=== PATIENT | male | born 1970 | race Caucasian/White ===

== ENCOUNTER 2017-11-24 10:36 | Observation (INO) | payer OTHER ==
[2017-11-24] MEDS ORDERED: NA CHLORIDE 0.9% 1,000 ML ONE (11:05)
[2017-11-24 11:25] LABS: Absolute Monocytes 0.7 K/uL (0.1-1.3); Absolute Neutrophil 6.1 K/uL (1.8-8.0); Basophils % 0.8 % (0-1.3); Eosinophils % 0.5 % (0-4.4); Hematocrit 50.6 % (39.6-49.0); Lymphocytes % 22.4 % (15.3-44.8); MCH 30.8 pg (27.0-35.0); MCV 89.7 fL (80-100); MPV 8.3 fL (7.6-11.3); RBC Red Blood Cell Count 5.63 M/uL (4.33-5.43)
[2017-11-24 11:37] LABS: Potassium 4.3 mEq/L (3.6-5.0)
[2017-11-24 11:43] LABS: Albumin 4.7 g/dL (3.2-5.5); Bilirubin Direct 0.2 mg/dL (0-0.2); Bilirubin Total 1.1 mg/dL (0.3-1.2); Magnesium 2.3 mg/dL (1.8-2.5); Protein, Total 7.9 g/dL (6.0-8.3)
[2017-11-24 11:45] LABS: CKMB Creatine Kinase MB 1.6 ng/ml (0.3-4.0)
--- NOTE | 2017-11-24 12:07 | RAD REPORT ---
EXAM DESCRIPTION: CT - Head Brain Wo Cont - 11/24/2017 11:51 am CLINICAL HISTORY: Hypertension, headache. COMPARISON: None. TECHNIQUE: All CT scans are performed using dose optimization technique as appropriate and may inclu de automated exposure control or mA/KV adjustment according to patient size. FINDINGS: No intracranial hemorrhage, hydrocephalus or extra-axial fluid collection.No areas of brai n edema or evidence of midline shift. The paranasal sinuses and mastoids are clear. The calvarium is intact. IMPRESSION: No acute intracranial abnormality.
--- NOTE | 2017-11-24 12:17 | EKG ---
Test Date: 2017-11-24 Test Time: 10:52:55 Light Rail Signal Technician: CHAUNCEY MEASUREMENT RESULTS: Intervals: Rate: 101 DE: 138 QRSD: 82 QT: 320 QTc: 414 [place]: P: 24 DE: 138 QRS: 6 T: 24 INTERPRETIVE STATEMENTS: Sinus tachycardia Otherwise normal ECG Compared to ECG 10/13/2013 10:15:19 Sinus rhythm no longer present Electronically Signed On 11-24-17 12:15:48 CDT by Reg Landers
--- NOTE | 2017-11-24 12:18 | RAD REPORT ---
EXAM DESCRIPTION: RAD - Chest Single View - 11/24/2017 11:54 am CLINICAL HISTORY: Hypertension, chest pain COMPARISON: 11/26/2015 FINDINGS: Portable technique limits examination quality. The lungs are grossly clear. The heart is normal in size. No displaced fractures. IMPRESSION: No acute intrathoracic process suspected.
[2017-11-24] MEDS ORDERED: ASPIRIN EC 81 MG TAB PO ONE (12:27)
--- NOTE | 2017-11-24 12:40 | EDPHYS ---
Physician Documentation [facility] Name: Mahesh West Age: 47 yrs Sex: Male : 1970 Arrival Date: 11/24/2017 Time: 10:39 Bed 13 Private MD: ED Physician Ashkan Hoover HPI: 11/24 11:02 This 47 yrs old Male presents to ER via EMS with complaints of tingling L cp side of face, L arm. 11:02 The patient's problem is reported as paresthesias, in left upper extremity, in left cp side of face. 11:02 Onset: The symptoms/episode began/occurred this morning, at 09:45. Duration: The cp episode is continuous, still ongoing. Context: symptoms became apparent at work. Associated signs and symptoms: Pertinent negatives: abdominal pain, blurred vision, chest pain, diaphoresis, dizziness, headache, palpitations, weakness. Severity of symptoms: in the emergency department the symptoms are unchanged. Patient's baseline: Neuro: alert and fully oriented, Motor: no deficits, Ambulation: walks without assistance, Speech: normal. The patient has not experienced similar symptoms in the past. Historical: - Allergies: 10:46 No Known Allergies; hj - Home Meds: 10:46 losartan 25 mg oral tab 1 tab once daily [Active]; hj - PMHx: 10:46 Hyperlipidemia; Hypertension; hj - PSHx: 10:46 None; hj - Immunization history:: Adult Immunizations up to date. - Social history:: Smoking status: Patient/guardian denies using tobacco, Patient/guardian denies using alcohol. ROS: 11:00 Constitutional: Negative for body aches, chills, fever, poor PO intake. cp 11:00 Eyes: Negative for injury, pain, redness, and discharge. cp 11:00 ENT: Negative for drainage from ear(s), ear pain, sore throat, difficulty swallowing, difficulty handling secretions. 11:00 Neck: Negative for pain with movement, pain at rest, stiffness. 11:00 Cardiovascular: Negative for chest pain, edema, palpitations. 11:00 Respiratory: Negative for cough, shortness of breath, wheezing. 11:00 Abdomen/GI: Negative for abdominal pain, nausea, vomiting, and diarrhea, black/tarry stool, rectal bleeding. 11:00 Back: Negative for pain at rest, pain with movement, radiated pain. 11:00 : Negative for urinary symptoms. 11:00 Skin: Negative for cellulitis, rash. 11:00 Neuro: Positive for tingling, of the left side of face and left forearm, Negative for altered mental status, dizziness, headache, speech changes, weakness. 11:00 All other systems are negative. Exam: 11:03 ECG was reviewed by the Attending Physician. cp 11:05 Constitutional: The patient appears in no acute distress, alert, awake, cp non-diaphoretic, non-toxic, well developed, well nourished. 11:05 Head/Face: Normocephalic, atraumatic. Eyes: Pupils equal round and reactive to light, cp extra-ocular motions intact. Lids and lashes normal. Conjunctiva and sclera are non-icteric and not injected. Cornea within normal limits. Periorbital areas with no swelling, redness, or edema. ENT: Nares patent. No nasal discharge, no septal abnormalities noted. Tympanic membranes are normal and external auditory canals are clear. Oropharynx with no redness, swelling, or masses, exudates, or evidence of obstruction, uvula midline. Mucous membranes moist. Neck: Trachea midline, no thyromegaly or masses palpated, and no cervical lymphadenopathy. Supple, full range of motion without nuchal rigidity, or vertebral point tenderness. No Meningismus. Chest/axilla: Normal chest wall appearance and motion. Nontender with no deformity. No lesions are appreciated. 11:05 Cardiovascular: Rate: tachycardic, Rhythm: regular, Pulses: Pulses are 2+ in right radial artery and left radial artery. Heart sounds: murmur, not appreciated, rub, not appreciated, gallop, not appreciated, Edema: is not appreciated, JVD: is not appreciated. 11:05 Respiratory: the patient does not display signs of respiratory distress, Respirations: normal, no use of accessory muscles, no retractions, no splinting, no tachypnea, labored breathing, is not present, Breath sounds: are clear throughout, no decreased breath sounds, no stridor, no wheezing. 11:05 Abdomen/GI: Inspection: abdomen appears normal, Bowel sounds: active, all quadrants, Palpation: abdomen is soft and non-tender, in all quadrants, rebound tenderness, is not appreciated, voluntary guarding, is not appreciated, involuntary guarding, is not appreciated. 11:05 Back: pain, is absent, ROM is normal. 11:05 Skin: cellulitis, is not appreciated, no rash present. 11:05 Neuro: Orientation: to person, place \T\ time. Mentation: is normal, Cranial nerves: CN II- XII are normal as tested, Cerebellar function: Romberg testing is negative, normal finger to nose testing, heel to jernigan testing is normal, Motor: moves all fours, strength is normal, Sensation: tingling, that is mild, of the left side of face and left forearm, Gait: is steady, at a normal pace, without difficulty. 12:25 Radiologist reports: no acute intracranial findings cp Vital Signs: 10:47 BP 136 / 96; Pulse 106; Resp 18; Temp 98.1(O); Pulse Ox 96% on R/A; Weight 99.79 kg; hj Height 5 ft. 7 in. (170.18 cm); Pain 0/10; 11:30 BP 135 / 89; Pulse 101; Resp 18; Pulse Ox 100% on R/A; hj 12:30 BP 139 / 96; Pulse 102; Resp 18; Pulse Ox 100% on R/A; hj 13:30 BP 130 / 78; Pulse 79; Resp 18; Pulse Ox 100% on R/A; hj 15:45 BP 117 / 78; Pulse 78; Resp 18; Pulse Ox 100% on R/A; hj 10:47 Body Mass Index 34.46 (99.79 kg, 170.18 cm) NIH Stroke Scale Scores: 11:00 NIHSS Score: 1 cp MDM: 11:03 Patient medically screened. 12:30 Data reviewed: vital signs, nurses notes, lab test result(s), EKG, radiologic studies, cp CT scan, plain films. 12:30 Test interpretation: by ED physician or midlevel provider: ECG, plain radiologic cp studies. Counseling: I had a detailed discussion with the patient and/or guardian regarding: the historical points, exam findings, and any diagnostic results supporting the discharge/admit diagnosis, lab results, radiology results, the need for further work-up and treatment in the hospital. Response to treatment: There is no appreciated change of the patient's symptoms at this time, no improvement or distribution change of tngling. 12:37 Physician consultation: was contacted at 12:38, regarding admission, to the telemetry cp unit. patient's condition, DR Melchor. 11/24 11:00 Order name: Basic Metabolic Panel; Complete Time: 11:51 11/24 11:52 Interpretation: Normal except: GFR 72. 11/24 11:00 Order name: BNP; Complete Time: 11:51 cp 11/24 11:00 Order name: CBC with Diff; Complete Time: 11:41 cp 11/24 11:41 Interpretation: Normal except: RBC 5.63; HCT 50.6. 11/24 11:00 Order name: Ckmb; Complete Time: 11:51 cp 11/24 11:00 Order name: CPK; Complete Time: 11:51 cp 11/24 11:00 Order name: LFT's; Complete Time: 11:51 11/24 11:00 Order name: Magnesium; Complete Time: 11:51 11/24 11:00 Order name: PT-INR; Complete Time: 11:51 11/24 11:00 Order name: Ptt, Activated; Complete Time: 11:51 11/24 11:00 Order name: Troponin (emerg Dept Use Only); Complete Time: 11:51 11/24 11:52 Interpretation: Reviewed. 11/24 11:00 Order name: XRAY Chest (1 view); Complete Time: 12:20 11/24 12:20 Interpretation: Report review. 11/24 14:43 Order name: Glucose, Ancillary Testing [facility] 11/24 15:04 Order name: Urine Dipstick--Ancillary (enter results) [facility] 11/24 15:19 Order name: Urine Dipstick-Ancillary [facility] 11/24 11:00 Order name: EKG; Complete Time: 11:01 11/24 11:00 Order name: Cardiac monitoring; Complete Time: 11:03 11/24 11:00 Order name: EKG - Nurse/Tech; Complete Time: 11:03 11/24 11:00 Order name: IV Saline Lock; Complete Time: 11: 11/24 11:00 Order name: Labs collected and sent; Complete Time: 11:40 11/24 11:00 Order name: O2 Per Protocol; Complete Time: 11: 11/24 11:00 Order name: O2 Sat Monitoring; Complete Time: 11:03 11/24 11:00 Order name: Urine Dipstick-Ancillary (obtain specimen); Complete Time: 15:00 11/24 11:00 Order name: CT Head Brain wo Cont; Complete Time: 12:20 11/24 12:20 Interpretation: Report reviewed. 11/24 11:56 Order name: MRI - Brain Wo Cont 11/24 13:10 Order name: CONS Physician Consult [facility] 11/24 13:54 Order name: MRI [facility] 11/24 14:04 Order name: Diet Heart Healthy; Complete Time: 14:05 EC:03 Rate is 101 beats/min. Rhythm is regular. UT interval is normal. QRS interval is cp normal. QT interval is normal. No ST changes noted. Interpreted by me. Reviewed by me. Administered Medications: 11:03 Drug: NS 0.9% 1000 ml Route: IV; Rate: 1 bolus; Site: right antecubital; 12:22 Drug: Aspirin 81 mg Route: PO; 12:29 Follow up: Response: No adverse reaction Disposition: 11/24/17 12:39 Hospitalization ordered by Javed Quispe for Observation. Preliminary diagnosis are Paresthesia of skin - Left side of face and left upper extremity, Hypertensive heart disease. - Bed requested for Telemetry/MedSurg (observation). - Status is Observation. - Condition is Stable. - Problem is new. - Symptoms are unchanged. UTI on Admission? No NIH Stroke Scale - NIH Stroke Score Date: 11/24/2017 Time: 11:00 Total Score = 1 1a. Level of Consciousness (LOC) - 0(Alert) 1b. Level of Consciousness (LOC) (Year \T\ Age) - 0(Both) 1c. LOC Commands (Open \T\ Closes Eyes/Rd Lab Technician) - 0(Both) 2. Best Gaze (Lateral Gaze Paresis) - 0(Normal) 3. Visual Field Loss - 0(No visual loss) 4. Facial Palsy - 0(Normal) 5a. Left Arm: Motor (10-second hold) - 0(No drift) 5b. Right Arm: Motor (10-second hold) - 0(No drift) 6a. Left Leg: Motor (5-second hold - always test supine) - 0(No drift) 6b. Right Leg: Motor (5-second hold - always test supine) - 0(No drift) 7. Limb Ataxia (finger/nose \T\ heel/jernigan - test with eyes open) - 0(Absent) 8. Sensory Loss (pinprick arms/legs/face) - 1(Mild to moderate loss) 9. Best Language: Aphasia (description/naming/reading) - 0(No aphasia) 10. Dysarthria (speech clarity - read or repeat words) - 0(Normal) 11. Extinction and Inattention (visual/tactile/auditory/spatial/personal) - 0(No abnormality) Initials: cp Addendum: 11/26/2017 06:35 Co-signature as Attending Physician, Ashkan Hoover MD I agree with the me assessment and plan of care. Signatures: Dispatcher [employer] Jayme Jackson RN RN hj Page, Corey, PA PA cp Appiah, William, MD MD me Star Swanson mw2 Corrections: (The following items were deleted from the chart) 11/24 15:36 12:39 Hospitalization Ordered by Javed Quispe DO for Observation. Preliminary mw2 diagnosis is Paresthesia of skin - Left side of face and left upper extremity; Hypertensive heart disease. Bed requested for Telemetry/MedSurg (observation). Status is Observation. Condition is Stable. Problem is new. Symptoms are unchanged. UTI on Admission? No. cp 17:01 15:36 11/24/2017 12:39 Hospitalization Ordered by Javed Quispe DO for hj Observation. Preliminary diagnosis is Paresthesia of skin - Left side of face and left upper extremity; Hypertensive heart disease. Bed requested for Telemetry/MedSurg (observation). Status is Observation. Condition is Stable. Problem is new. Symptoms are unchanged. UTI on Admission? No. mw2
--- NOTE | 2017-11-24 12:40 | ER ---
Nurse's Notes [facility] Name: Mahesh West Age: 47 yrs Sex: Male : 1970 Arrival Date: 11/24/2017 Time: 10:39 Bed 13 Private MD: Diagnosis: Paresthesia of skin-Left side of face and left upper extremity;Hypertensive heart disease Presentation: 11/24 10:41 Presenting complaint: EMS states: around 9:45am, went to [facility] from office, desk hj work, complaining of tingling on L side of face, L arm, denies chest pain, denies SOB; denies headache; states took HTN meds this AM;. Transition of care: patient was not received from another setting of care. Onset of symptoms was November 24, 2017. Initial Sepsis Screen: Does the patient meet any 2 criteria? No. Patient's initial sepsis screen is negative. Does the patient have a suspected source of infection? No. Patient's initial sepsis screen is negative. Care prior to arrival: None. 10:41 Method Of Arrival: EMS: [facility] 10:41 Acuity: HIEN 3 hj Triage Assessment: 10:47 General: Appears in no apparent distress. uncomfortable, Behavior is calm, cooperative, hj appropriate for age. Pain: Denies pain. Historical: - Allergies: 10:46 No Known Allergies; hj - Home Meds: 10:46 losartan 25 mg oral tab 1 tab once daily [Active]; hj - PMHx: 10:46 Hyperlipidemia; Hypertension; hj - PSHx: 10:46 None; hj - Immunization history:: Adult Immunizations up to date. - Social history:: Smoking status: Patient/guardian denies using tobacco, Patient/guardian denies using alcohol. Screenin:48 Abuse screen: Denies threats or abuse. Denies injuries from another. Nutritional hj screening: No deficits noted. Tuberculosis screening: No symptoms or risk factors identified. Fall Risk None identified. Assessment: 11:30 Reassessment: Patient and/or family updated on plan of care and expected duration. Pain hj level reassessed. Patient is alert, oriented x 3, equal unlabored respirations, skin warm/dry/pink. tingling is present still on L arm;. 12:30 Reassessment: Patient and/or family updated on plan of care and expected duration. Pain hj level reassessed. Patient is alert, oriented x 3, equal unlabored respirations, skin warm/dry/pink. awaiting results and POC;. 13:30 Reassessment: Patient and/or family updated on plan of care and expected duration. Pain hj level reassessed. Patient is alert, oriented x 3, equal unlabored respirations, skin warm/dry/pink. awaiting room;. 14:30 Reassessment: Patient and/or family updated on plan of care and expected duration. Pain hj level reassessed. Patient is alert, oriented x 3, equal unlabored respirations, skin warm/dry/pink. eating lunch;. 15:38 Reassessment: Patient and/or family updated on plan of care and expected duration. Pain hj level reassessed. Patient is alert, oriented x 3, equal unlabored respirations, skin warm/dry/pink. going to 431;. 15:49 Reassessment: RN was told that the same nurse is getting this pt for floor nurse 3rd hj admission; will wait for a return call;. Vital Signs: 10:47 BP 136 / 96; Pulse 106; Resp 18; Temp 98.1(O); Pulse Ox 96% on R/A; Weight 99.79 kg; hj Height 5 ft. 7 in. (170.18 cm); Pain 0/10; 11:30 BP 135 / 89; Pulse 101; Resp 18; Pulse Ox 100% on R/A; hj 12:30 BP 139 / 96; Pulse 102; Resp 18; Pulse Ox 100% on R/A; hj 13:30 BP 130 / 78; Pulse 79; Resp 18; Pulse Ox 100% on R/A; hj 15:45 BP 117 / 78; Pulse 78; Resp 18; Pulse Ox 100% on R/A; hj 10:47 Body Mass Index 34.46 (99.79 kg, 170.18 cm) hj NIH Stroke Scale Scores: 11:00 NIHSS Score: 1 cp ED Course: 10:39 Patient arrived in ED. hj 10:45 Triage completed. hj 10:49 Arm band placed on right wrist. hj 10:49 Patient has correct armband on for positive identification. Placed in gown. Bed in low hj position. Call light in reach. Side rails up X 1. Adult w/ patient. 10:53 Catracho Arias PA is PHCP. cp 10:53 Ashkan Hoover MD is Attending Physician. cp 10:59 EKG done, by ED staff, reviewed by Catracho SUMMERS. jb1 11:00 Maintain EMS IV. Dressing intact. Good blood return noted. Site clean \T\ dry. Gauge \T\ hj site: 20g R AC:. 11:02 Jayme Kendrick RN is Primary Nurse. hj 11:[address] via wheelchair. kw1 11:30 CT completed. Patient tolerated procedure well. kw1 11:52 CT Head Brain wo Cont In Process Unspecified. EDMS 11:54 XRAY Chest (1 view) In Process Unspecified. EDMS 12:38 Javed Quispe DO is Hospitalizing Provider. cp 13:10 Patient moved to MRI via wheelchair. Patient moved back from MRI. lc 13:30 Patient moved back from MRI. lc 17:01 No provider procedures requiring assistance completed. Patient admitted, IV remains in hj place. intact. Administered Medications: 11:03 Drug: NS 0.9% 1000 ml Route: IV; Rate: 1 bolus; Site: right antecubital; hj 12:22 Drug: Aspirin 81 mg Route: PO; hj 12:29 Follow up: Response: No adverse reaction Outcome: 12:39 Decision to Hospitalize by Provider. cp 17:01 Admitted to Tele accompanied by tech, family with patient, via wheelchair, room 431, with chart, Report called to NATHAN Martin 17:01 Condition: stable 17:01 Instructed on the need for admit, Demonstrated understanding of instructions. 17:01 Patient left the ED. NIH Stroke Scale - NIH Stroke Score Date: 11/24/2017 Time: 11:00 Total Score = 1 1a. Level of Consciousness (LOC) - 0(Alert) 1b. Level of Consciousness (LOC) (Year \T\ Age) - 0(Both) 1c. LOC Commands (Open \T\ Closes Eyes/Oral Hygienist) - 0(Both) 2. Best Gaze (Lateral Gaze Paresis) - 0(Normal) 3. Visual Field Loss - 0(No visual loss) 4. Facial Palsy - 0(Normal) 5a. Left Arm: Motor (10-second hold) - 0(No drift) 5b. Right Arm: Motor (10-second hold) - 0(No drift) 6a. Left Leg: Motor (5-second hold - always test supine) - 0(No drift) 6b. Right Leg: Motor (5-second hold - always test supine) - 0(No drift) 7. Limb Ataxia (finger/nose \T\ heel/jernigan - test with eyes open) - 0(Absent) 8. Sensory Loss (pinprick arms/legs/face) - 1(Mild to moderate loss) 9. Best Language: Aphasia (description/naming/reading) - 0(No aphasia) 10. Dysarthria (speech clarity - read or repeat words) - 0(Normal) 11. Extinction and Inattention (visual/tactile/auditory/spatial/personal) - 0(No abnormality) Initials: cp Signatures: Dispatcher [employer] EDBam Azar jb1 Ayse Freire Henry, RN RN Catracho Yeung PA PA cp Rand Diego kw1
--- NOTE | 2017-11-24 13:53 | RAD REPORT ---
EXAM DESCRIPTION: MRI - Brain Wo Cont - 11/24/2017 1:31 pm CLINICAL HISTORY: Numbness/facial numbness COMPARISON: November 24, [address] TECHNIQUE: Axial, sagittal, and coronal magnetic images of the brain were obtained. Contrast was not requested FINDINGS: No abnormal signal is present within the brain. Diffusion-weighted/ADC mapping does not reveal evidence of acute infarction. The ventricles are normal caliber. An extra-axial fluid collection is not present The sinuses and mastoids are clear. IMPRESSION: Unremarkable unenhanced brain MRI
[2017-11-24 14:24] VITALS: BMI 34.4
[2017-11-24] MEDS ORDERED: ONDANSETRON 4 MG/2 ML VIAL IV PRN (14:51)
[2017-11-24] MEDS ORDERED: ACETAMINOPHEN 500 MG TAB PO PRN (14:51)
[2017-11-24] MEDS ORDERED: MAGNESIUM HYDROXIDE 8% 30 ML PO PRN (14:51)
[2017-11-24] MEDS: NA CHLORIDE 0.9% 1,000 ML IV SCH (15:00)
[2017-11-24 15:18] LABS: Urine Blood NEGATIVE (NEG); Urine Glucose NEGATIVE (NEG); Urine Protein NEGATIVE (NEG)
[2017-11-24] MEDS ORDERED: ENOXAPARIN 40 MG/0.4 ML SQ SCH (17:00)
[2017-11-24 17:20] VITALS: O2SAT 100
--- NOTE | 2017-11-24 17:24 | P.HP ---
Certification for Inpatient Patient admitted to: Observation With expected LOS: <2 Midnights Patient will require the following post-hospital care: None Practitioner: I am a practitioner with admitting privileges, knowledge of patient current condition, hospital course, and medical plan of care. Services: Services provided to patient in accordance with Admission requirements found in Title 42 Section 412.3 of the Code of Federal Regulations Patient History Date of Service: 11/24/17 Reason for admission: numbness History of Present Illness: 47 year old male with history of hypertension who presented with complaint of initially left facial and left upper arm numbness which started this am ~ 9am. this was associated with decreased sensation and paresthesia on same side.Numbness said to have migrated to the right side of his face as well as his right distal arm.He denied any other symptoms.No chest pain, headache, slurred speech or facial drooping.He denied any LOC,visual disturbances or problems swallowing works at [employer] for the past 5 years.Smokes occasionally. Allergies No Known Allergies Allergy (Verified 11/24/17 13:09) Home medications list reviewed: Yes Home Medications: Losartan Potassium [Cozaar] 25 mg PO DAILY 11/24/17 - Past Medical/Surgical History Has patient received pneumonia vaccine in the past: No Diabetic: No -: HTN - Family History Father -: Hypertension - Social History Smoking Status: Never smoker Alcohol use: No CD- Drugs: No Caffeine use: Yes Place of Residence: Home Review of Systems 10-point ROS is otherwise unremarkable Physical Examination - Vital Signs Temperature: 98.1 F Blood Pressure: 117/68 Pulse: 75 Respirations: 18 Pulse Ox (%): 100 - Physical Exam General: Alert, In no apparent distress, Oriented x3 HEENT: Atraumatic, Normocephalic, PERRLA Neck: Supple, JVD not distended, No Thyromegaly, No LAD Respiratory: Clear to auscultation bilaterally, Normal air movement Cardiovascular: No edema, Normal pulses, Regular rate/rhythm, Normal S1 S2, No rubs, No murmurs Gastrointestinal: Normal bowel sounds, Soft and benign, Non-distended, W/out hepatosplenomegaly, No ascites, No tenderness, No masses, No rebound, No guarding Musculoskeletal: No clubbing, No swelling, No contractures, No erythema, No tenderness, No warmth Integumentary: No significant lesion, No tenderness/swelling, No erythema, No warmth Neurological: Normal speech, Normal strength at 5/5 x4 extr, Normal tone, Sensation intact, Cranial nerves 3-12 intact, Normal reflexes 2+ - Studies Laboratory Data (last 24 hrs) 11/24/17 11:12: PT 11.8, INR 1.00, APTT 29.2 11/24/17 11:12: WBC 8.9, Hgb 17.3, Hct 50.6 H, Plt Count 260 11/24/17 11:12: B-Natriuretic Peptide < 10 11/24/17 11:12: Sodium 135, Potassium 4.3, BUN 14, Creatinine 1.11, Glucose 106 , Magnesium 2.3, Total Bilirubin 1.1, AST 25, ALT 33, Alkaline Phosphatase 70 Assessment and Plan - Problems (Diagnosis) (1) Numbness and tingling Current Visit: Yes Status: Acute Plan: CT head negative will obtain MRI check ESR,CRP,B12,FOLATE will check TSH,lipid profile and HA1C will monitor on telemetry Neurology consulted (2) Hypertension Current Visit: Yes Status: Acute Plan: resume home medication Qualifiers: Hypertension type: essential hypertension Qualified Code(s): I10 - Essential (primary) hypertension Discharge Plan: Home - Advance Directives Does patient have a Living Will: No Does patient have a Durable POA for Healthcare: No - Code Status/Comfort Care Code Status Assessed: Yes Code Status: Full Code Physician Review: Patient Assessed, Agree with Above Assessment and Plan Time Spent Managing Pts Care (In Minutes): 45
[2017-11-24] MEDS: ATORVASTATIN 40 MG TAB PO SCH ×2 (20:41→20:43)
[2017-11-24 21:31] LABS: Barbiturates NEGATIVE; Benzodiazepines NEGATIVE; Cocaine NEGATIVE; METHAMPHETAM NEGATIVE; Opiates NEGATIVE; Phencyclidine NEGATIVE; THC Cannibis NEGATIVE
[2017-11-25] MEDS: NA CHLORIDE 0.9% 1,000 ML IV SCH ×2 (03:35→06:44)
[2017-11-25 05:15] LABS: RPR Titer ND
[2017-11-25 05:20] VITALS: BP 133/78; TEMP 97.2
[2017-11-25 05:23] LABS: Absolute Lymphocytes (CBC) 2.4 K/uL (0.7-4.9); Absolute Monocytes 0.6 K/uL (0.1-1.3); Basophils % 2.3 % (0-1.3); Eosinophils % 1.5 % (0-4.4); Hematocrit 45.4 % (39.6-49.0); Lymphocytes % 32.8 % (15.3-44.8); MCH 31.3 pg (27.0-35.0); MCV 90.8 fL (80-100); MPV 8.6 fL (7.6-11.3); Monocytes % 8.3 % (3.3-12.3)
[2017-11-25 06:11] LABS: BUN Blood Urea Nitrogen 15 mg/dL (6-20); Bicarbonate 24 mEq/L (21-31); Folic Acid, (Folate) 9.3 ng/ml (>5.21); Glucose Level 105 mg/dL (65-120); HDL Cholesterol 25 mg/dL (27-67); LDL, Direct 116 mg/dl (<130); Magnesium 2.2 mg/dL (1.8-2.5); Phosphorus 3.2 mg/dL (2.5-4.3); Potassium 4.1 mEq/L (3.6-5.0); Sodium Level 137 mEq/L (135-145); T4,Total 7.41 ug/dl (6.09-12.23); Thyroid Stimulating Hormone 2.27 uIU/mL (0.34-5.60)
[2017-11-25] MEDS ORDERED: ASPIRIN EC 81 MG TAB PO SCH (09:00)
[2017-11-25 10:15] LABS: A1c Component 0.52 mg/dL; Hemoglobin A1c 5.2 % (4-6.0)
[2017-11-25] MEDS ORDERED: LOSARTAN POTASSIUM 50 MG TABLET PO SCH (13:00)
--- NOTE | 2017-11-25 14:15 | P.DS ---
Admission Date: 11/24/17 Discharge Date: 11/25/17 Disposition: ROUTINE DISCHARGE Discharge Condition: GOOD Reason for Admission: numbness - Problems (1) Numbness and tingling Onset Date: 11/25/17 Current Visit: Yes Status: Acute (2) Hypertension Onset Date: 11/25/17 Current Visit: Yes Status: Acute Qualifiers: Hypertension type: essential hypertension Qualified Code(s): I10 - Essential (primary) hypertension Brief History of Present Illness: 47 year old male with history of hypertension who presented with complaint of initially left facial and left upper arm numbness which started this am ~ 9am. this was associated with decreased sensation and paresthesia on same side.Numbness said to have migrated to the right side of his face as well as his right distal arm.He denied any other symptoms.No chest pain, headache, slurred speech or facial drooping.He denied any LOC,visual disturbances or problems swallowing works at [employer] for the past 5 years.Smokes occasionally. Hospital Course: Patient had imaging done including CT/MRI of the brain which came back negative.Blood work revealed elevated cholesterol levels.He was started on statin,ASA and continued on his home BP medications.He was seen by neurologist and was discharged home in a stable condition Vital Signs/Physical Exam: Temp Pulse Resp BP Pulse Ox 97.2 F 73 20 133/78 97 11/25/17 04:00 11/25/17 04:00 11/25/17 04:00 11/25/17 04:00 11/25/17 04:00 General: In no apparent distress, Oriented x3 HEENT: Atraumatic, Normocephalic, Mucous membr. moist/pink Neck: Supple, JVD not distended, No Thyromegaly, No LAD Respiratory: Clear to auscultation bilaterally, Normal air movement Cardiovascular: No edema, Normal pulses, Regular rate/rhythm, Normal S1 S2, No gallops, No rubs, No murmurs Gastrointestinal: Normal bowel sounds, Soft and benign, Non-distended, W/out hepatosplenomegaly, No ascites, No tenderness, No masses, No rebound, No guarding Musculoskeletal: No clubbing, No swelling, No erythema, No tenderness, No warmth Neurological: Normal strength at 5/5 x4 extr, Normal tone, Sensation intact, Cranial nerves 3-12 intact Laboratory Data at Discharge: WBC 7.2 K/uL (4.3-10.9) D 11/25/17 04:16 Hgb 15.6 g/dL (13.6-17.9) 11/25/17 04:16 Hct 45.4 % (39.6-49.0) 11/25/17 04:16 Plt Count 188 K/uL (152-406) D 11/25/17 04:16 PT 11.8 SECONDS (9.5-12.5) 11/24/17 11:12 INR 1.00 11/24/17 11:12 APTT 29.2 SECONDS (24.3-36.9) 11/24/17 11:12 Sodium 137 mEq/L (135-145) 11/25/17 04:16 Potassium 4.1 mEq/L (3.6-5.0) 11/25/17 04:16 BUN 15 mg/dL (6-20) 11/25/17 04:16 Creatinine 0.96 mg/dL (0.61-1.24) 11/25/17 04:16 Glucose 105 mg/dL (65-120) 11/25/17 04:16 Phosphorus 3.2 mg/dL (2.5-4.3) 11/25/17 04:16 Magnesium 2.2 mg/dL (1.8-2.5) 11/25/17 04:16 Total Bilirubin 1.1 mg/dL (0.3-1.2) 11/24/17 11:12 AST 25 IU/L (10-42) 11/24/17 11:12 ALT 33 IU/L (10-60) 11/24/17 11:12 Alkaline Phosphatase 70 IU/L (42-121) 11/24/17 11:12 B-Natriuretic Peptide < 10 pg/ml (<=100) 11/24/17 11:12 Triglycerides 210 mg/dL (35-160) H 11/25/17 04:16 Cholesterol 161 mg/dL (<200) 11/25/17 04:16 LDL Cholesterol Direct 116 mg/dl (<130) 11/25/17 04:16 HDL Cholesterol 25 mg/dL (27-67) L 11/25/17 04:16 Cholesterol/HDL Ratio 6.44 11/25/17 04:16 Home Medications: Losartan Potassium [Cozaar] 25 mg PO DAILY 11/24/17 Atorvastatin Calcium [Lipitor] 40 mg PO BEDTIME 60 Days #60 tab 11/25/17 New Medications: Atorvastatin Calcium [Lipitor] 40 mg PO BEDTIME 60 Days #60 tab Patient Discharge Instructions: Return to ER with new or worsening symptoms. take ASA 81 MG DAILY PO Diet: Low sodium Activity: Ad hillayr Followup: Damián Grimm MD [ASSOCIATE-ACTIVE - CAN ADMIT] - (in one month) Physician Review: Patient Assessed, Agree with Above Assessment and Plan Time spent managing pt's care (in minutes): 30
[2017-11-25 21:58] LABS: RPR (Rapid Plasma Reagin) NON-REACT (NON-REACT)
--- NOTE | 2017-11-26 01:20 | CON ---
Reason For Consultation: Consultation called because of stroke symptoms. History Of Present Illness: Mr. West is a 47-year-old right-handed patient, who comes to [facility] on the November 24 with left face and arm numbness, paresthesias that shifted over t o the right side of his face. The patient said symptoms came on around 9 a.m. He noted there was so me mild improvement in his symptoms, however, he did come into [facility] for an evaluation. Head CT scan showed no acute ischemic or hemorrhagic change. Brain MRI stroke protocol was normal. He did say symptoms have resolved, back to baseline about 12 hours after onset. He was not taking an aspirin on a regular basis. Was given aspirin in the hospital and put on Lipitor 40 mg as well as DVT prophylaxis with Lovenox, and Cozaar for management of hypertension. Past Medical History: Hypertension. Allergies: NO KNOWN DRUG ALLERGIES. Medications: At home, Cozaar 25 mg daily. Family History: Positive for hypertension in father. Social History: Denies alcohol, tobacco, or IV drug use. Review of Systems: He denies any recent fevers or chills. No nausea or vomiting. No myalgias or arthralgias, rash, uriel ght change, headache. Physical Examination: Vital Signs: Blood pressure 133/78, pulse 73, respiratory rate 20, temperature 97.2, oxygen saturati on 97% on room air. Weight 222 pounds, height 5 feet 7 inches, BMI 34.5. General: Mr. West is actually ambulating around his room. He is in no acute distress. HEENT: He is normocephalic, atraumatic. His sclera is anicteric. Oropharynx is moist and pink. Neck: Supple. Chest: Clear. Heart: Regular. Extremities: Show no edema or cyanosis. Neurologically: He is alert and oriented to person, place, time, and situation. No expressive or re ceptive aphasias. His examination on cranial nerves 2 through 12 show no focal deficits. Motor exam ination in the upper and lower extremities 5/5 strength proximally and distally. Sensory examination intact to light touch, temperature in the arms and legs. Coordination intact in upper and lower ext remities. His gait is normal stance, stride, and arm swing. Reflexes 2+ in upper and lower extremit ies. Laboratory Studies: Complete blood count with differential is unremarkable. Coagulation panel is no rmal. Chemistries unremarkable. His triglyceride level 210, total cholesterol 161, LDL cholesterol 116, HDL cholesterol 125. His total cholesterol to HDL ratio is elevated to 6.4. B12 level is mildl y low at 382. TSH normal at 2.27, T4 is normal at 7.41. Liver function studies are normal. Urine d rug screen is negative. Urinalysis is unremarkable. His electrocardiogram shows sinus tachycardia, otherwise normal. NIH Stroke Scale 0. Assessment: Mr. West is a 47-year-old patient with a transient ischemic attack in the se tting of elevated cholesterol ratio and hypertension. He is not on aspirin. Plan: The patient should take aspirin on a regular basis. Also, he should have an aggressive manage ment of his hypertension and dyslipidemia. The patient may be discharged home and follow up in Dr. Jerman blackwell's clinic in 1 month. MONSERRAT Voice ID: [id number] Report ID: [id number]
== END 2017-11-25 16:10 | disposition home or self-care (01) ==
LOC: ER 10:36 → ERHOLD 13:07 → 4TH 16:57
PROVIDERS: ADMIT Internal Medicine; ATTEND Internal Medicine
DX: R20.2 Paresthesia of skin (principal); I10 Essential (primary) hypertension; E78.00 Pure hypercholesterolemia, unspecified
CPT/HCPCS: 36415; 70450; 70551; 71045; 80048; 80061; 80076; 80307; 81003; 82550; 82553; 82607; 82746; 82962; 83036; 83735; 83880; 84100; 84436; 84443; 84484; 85025; 85610; 85652; 85730; 86592; 93005; 99285; G0378; J1650; J7030